=== PATIENT | male | born 1955 | race Two or more races ===

== ENCOUNTER 2024-06-14 23:25 | Inpatient (IN) | payer MEDICAID, OTHER ==
[~2024-06-14] VITALS: Ht 185.4 cm; Wt 88.0 kg
--- NOTE | 2024-06-14 23:46 | ECG ---
[facility] Test Date: 2024-06-14 Test Time: 23:45:09 Pat Name: POLINA MENDOZA Department: ed Room: Gender: M Student Services Director: lorenzo : 1955 Requested By: ASHLEY RICHMOND Order Number: [id number] Reading MD: Measurements Intervals [place] Rate: 88 P: 81 [place]: 184 QRS: 73 QRSD: 77 T: 13 QT: 351 QTc: 425 Interpretive Statements Sinus rhythm Low voltage, precordial leads Please click the below link to view image of tracing.
[2024-06-15 00:12] LABS: Basophils # (auto) 0.1 10 ^3/uL (0-0.2); Basophils % (auto) 0.7 % (0.0-2.0); Eosinophils # (auto) 0.3 10 ^3/uL (0-0.8); Eosinophils % (auto) 3.5 % (0.0-7.0); Hematocrit 46.3 % (41.0-53.0); Hemoglobin 15.9 g/dL (13.5-17.5); Lymphocytes # (auto) 1.9 10 ^3/uL (0.4-5.4); Lymphocytes % (auto) 24.6 % (10.0-50.0); Mean Corpuscular Hemoglobin 33.4 pg (28.0-32.0); Mean Corpuscular Hgb Conc. 34.4 g/dL (32.0-36.0); Mean Corpuscular Volume 97.1 fL (80.0-100.0); Monocytes # (auto) 0.6 10 ^3/uL (0-1.3); Monocytes % (auto) 7.6 % (0.0-12.0); Neutrophils % (auto) 63.6 % (37.0-80.0); Nucleated Red Blood Cells % 0.1 %; Platelet Count (auto) 214 10^3/uL (140-450); Red Blood Cells 4.76 10^6/uL (4.5-5.90); Red Cell Distribution Width 13.1 % (11.8-14.3); White Blood Cell 7.9 10^3/uL (4.4-10.8)
--- NOTE | 2024-06-15 00:14 | ED.PDOC ---
History of Present Illness HPI Comments 69-year-old male with a history of AFib status post ablation brought in by EMS due to syncope. Patient has history of hypertension and AFib, states he is no longer on Eliquis after the ablation, but is supposed to be taking metoprolol. Patient states he has been weaning himself off metoprolol without being advised to do so by his rental representative. Patient states he has been having intermittent short runs of a fib recently, recorded by his watch. Pt states this evening he ate some chocolate, then about an hour later he felt dizzy and had a syncopal episode. He denies any injury. He reportedly had another syncopal episode while being evaluated by EMS. Patient was noted to be bradycardic in the 40's but normotensive with a blood sugar of 139 on scene. On arrival to ED, pt denies any dizziness, chest pain, palpitations, sob or recent illness. Chief Complaint: Syncope Time Seen by MD: 00:13 Reviewed Notes: Nurses Notes, Osteologist Notes Allergies: Coded Allergies: NO KNOWN ALLERGIES (Unverified , 06/14/24) Information Source: Patient, Emergency Med Personnel Mode of Arrival: EMS Severity: Moderate Timing: Hours Duration: Intermittent Prehospital treatment: None Past Medical History PAST MEDICAL HISTORY: AFIB, HTN Surgical History: Appendectomy Surgical History (Other): Cardiac ablation, cataract surgery Family History Family History: Reviewed,noncontributory to illness Social History Smoker: Non-Smoker Alcohol: Denies ETOH Use Drugs: Denies Drug Use Lives In: Home Constitutional: denies: chills, diaphoresis, fatigue, fever, malaise, sweats, weakness, others EENTM: denies: blurred vision, double vision, ear bleeding, ear discharge, ear drainage, ear pain, ear ringing, eye pain, eye redness, hearing loss, mouth pain, mouth swelling, nasal discharge, nose bleeding, nose congestion, nose pain, photophobia, tearing, throat pain, throat swelling, voice changes, others Respiratory: denies: cough, hemoptysis, orthopnea, SOB at rest, shortness of breath, SOB with excertion, stridor, wheezing, others Cardiovascular: denies: chest pain, dizzy spells, diaphoresis, Dyspnea on exertion, edema, irregular heart beat, left arm pain, lightheadedness, palpitations, PND, syncope, others Gastrointestinal: denies: abdomen distended, abdominal pain, blood streaked bowels, constipated, diarrhea, dysphagia, difficulty swallowing, hematemesis, melena, nausea, poor appetite, poor fluid intake, rectal bleeding, rectal pain, vomiting, others Genitourinary: denies: burning, dysuria, flank pain, frequency, hematuria, incontinence, penile discharge, penile sore, pain, testicle pain, testicle swelling, urgency, others Neurological: reports: dizziness, fainting; denies: headache, left sided numbness, left sided weakness, numbness, paresthesia, pre-existing deficit, right sided numbness, right sided weakness, seizure, speech problems, tingling, tremors, weakness, others Musculoskeletal: denies: back pain, gout, joint pain, joint swelling, muscle pain, muscle stiffness, neck pain, others Integumetry: denies: bruises, change in color, change in hair/nails, dryness, laceration, lesions, lumps, rash, wounds, others Allergic/Immunocompromised: denies: Difficulty Healing, Frequent Infections, Hives, Itching, others Hematologic/Lymphatic: denies: anemia, blood clots, easy bleeding, easy bruising, swollen glands, others Endocrine: denies: excessive hunger, excessive sweating, excessive thirst, excessive urination, flushing, intolerance to cold, intolerance to heat, unexplained weight gain, unexplained weight loss, others Psychiatric: denies: anxiety, bipolar disorder, depression, hopeless, panic disorder, schizophrenia, sleepless, suicidal, others Physical Exam General Appearance: No Apparent Distress HEENT: PERRL/EOMI Neck: Full Range of Motion, Normal Inspection Respiratory: Lungs Clear, No Accessory Muscle Use, No Respiratory Distress, Normal Breath Sounds Cardiovascular: No Edema, No JVD, Regular Rate/Rhythm Breast Exam: Deferred Gastrointestinal: Non Tender, Soft Genitalia: Deferred Pelvic: Deferred Rectal: Deferred Extremities: Normal inspection, Normal range of motion, Non-tender, No pedal edema Neurologic: Alert (Oriented x4), No Motor Deficits, Normal Affect, Normal Mood, No Sensory Deficits Cerebellar Function: NOT DONE Reflexes: NOT DONE Skin: Dry, Pallor, Warm Lymphatic: NOT DONE Was a procedure done? Was a procedure done?: No EKG EKG : Comments Sinus rhythm, rate 88, normal intervals, normal axis, normal QRS, no ST/T changes. Differential Dx Considerations may include: Anemia, electrolyte imbalance, vasovagal syncope, arrhythmia, ND, carotid disease, CVA, TIA, among others X-Ray, Labs, Meds, VS Vital Signs Date Time Temp Pulse Resp B/P (MAP) Pulse Ox O2 Delivery O2 Flow Rate FiO2 06/14/24 23:47 67 16 132/78 (96) 100 06/14/24 23:45 88 Lab Test 06/15/24 00:45 06/14/24 23:50 06/14/24 02:41 Range/Units Troponin I High Sensitivity < 3 L < 3 L </=54 ng/L White Blood Count 7.9 4.4-10.8 10^3/uL Red Blood Count 4.76 4.5-5.90 10^6/uL Hemoglobin 15.9 13.5-17.5 g/dL Hematocrit 46.3 41.0-53.0 % Mean Corpuscular Volume 97.1 80.0-100.0 fL Mean Corpuscular Hemoglobin 33.4 H 28.0-32.0 pg Mean Corpuscular Hemoglobin Concent 34.4 32.0-36.0 g/dL Red Cell Distribution Width 13.1 11.8-14.3 % Platelet Count 214 140-450 10^3/uL Mean Platelet Volume 7.7 6.9-10.8 fL Neutrophils (%) (Auto) 63.6 37.0-80.0 % Lymphocytes (%) (Auto) 24.6 10.0-50.0 % Monocytes (%) (Auto) 7.6 0.0-12.0 % Eosinophils (%) (Auto) 3.5 0.0-7.0 % Basophils (%) (Auto) 0.7 0.0-2.0 % Neutrophils # (Auto) 5.0 1.6-8.6 10 ^3/uL Lymphocytes # (Auto) 1.9 0.4-5.4 10 ^3/uL Monocytes # (Auto) 0.6 0-1.3 10 ^3/uL Eosinophils # (Auto) 0.3 0-0.8 10 ^3/uL Basophils # (Auto) 0.1 0-0.2 10 ^3/uL Nucleated Red Blood Cells 0.1 % Prothrombin Time 10.8 9.3-11.8 sec Prothrombin Time INR 1.02 0.9-1.15 Activated Partial Thromboplast Time 24.0 L 24.5-34.5 SEC Sodium Level 139 136-145 mmol/L Potassium Level 3.9 3.5-5.1 mmol/L Chloride Level 106 98-107 mmol/L Carbon Dioxide Level 22 20-31 mmol/L Anion Gap 11 5-15 Blood Urea Nitrogen 12 9-23 mg/dL Creatinine 1.28 0.700-1.30 mg/dL Glomerular Filtration Rate Calc 61 >90 mL/min BUN/Creatinine Ratio 9.4 L 10.0-20.0 Serum Glucose 144 H 74-106 mg/dL Calcium Level 10.1 8.7-10.4 mg/dL Total Bilirubin 0.6 0.2-1.0 mg/dL Aspartate Amino Transferase (AST) 22 13-40 U/L Alanine Aminotransferase (ALT) 24 7-40 U/L Alkaline Phosphatase 93 46-116 U/L B-Type Natriuretic Peptide 10.72 0-100 pg/mL Total Protein 7.9 5.7-8.2 g/dL Albumin 4.6 3.2-4.8 g/dL Urine Color Colorless Yellow Urine Clarity Clear Clear Urine pH 6.5 5.0-9.0 Urine Specific [place] 1.010 1.001-1.035 Urine Protein Negative Negative Urine Ketones Negative Negative Urine Blood Negative Negative /uL Urine Nitrite Negative Negative Urine Bilirubin Negative Negative Urine Urobilinogen Normal Negative mg/dL Urine Leukocyte Esterase Negative Negative /uL Urine RBC 1 0 - 3 /hpf Urine WBC 1 0 - 3 /hpf Urine Squamous Epithelial Cells None seen <5 /hpf Urine Bacteria Few H None Seen /hpf Urine Glucose Normal Normal mg/dL Current Medications Medications (Trade) Dose Ordered Sig/Paulo Route Start Time Stop Time Status Last Admin Sodium Chloride 1,000 ml @ 1,000 mls/hr Q1H ONCE IV 06/15/24 00:15 06/15/24 01:14 DC 06/15/24 00:15 PROCEDURE(s): HWOCT - HEAD WITHOUT CONTRAST REASON: syncope ORDER NUMBER(s): [id number], ACCESSION NUMBER(s): [id number] Examination: HWOCT CLINICAL INDICATION: syncope COMPARISON: None. CONTRAST USED: None. TECHNIQUE: The examination was performed obtaining 5 mm slices without contrast.Technique for this CT scan was done using principles of ALARA (As Low As Reasonably Achievable). Multiplanar reconstructions were obtained. FINDINGS: SUPRATENTORIAL BRAIN: Cerebral Hemispheres: There is no midline shift or mass effect, intra or extra- axial fluid collections or hemorrhage. Periventricular White Matter/Basal Ganglia: No abnormal areas of altered attenuation within the periventricular white matter or basal ganglia. POSTERIOR FOSSA: The brainstem is normal and the visualized cerebellar hemispheres are unremarkable. VENTRICULAR SYSTEM: The ventricular system is normal in size. There is no evidence of hydrocephalus or transependymal flow of cerebrospinal fluid. SKULL BASE AND PARASELLAR REGION: The skull base is normal with no parasellar masses or abnormalities identified. CALVARIUM AND SCALP REGION: No abnormality is seen. PARANASAL SINUSES: No significant inflammatory changes are identified in the paranasal sinuses. IMPRESSION: No intracranial abnormality detected. There is no midline shift or mass effect, intra or extra-axial fluid collections or hemorrhage. Electronically Signed 06/15/2024 02:01 Guillermo Dean EDURE(s): CXRP - CHEST PORTABLE REASON: syncope ORDER NUMBER(s): [id number], ACCESSION NUMBER(s): [id number] CHEST RADIOGRAPH Indication: Chest Pain Technique: Single frontal view of the chest was obtained Comparison: None FINDINGS: Lines and Tubes: None Lungs: Clear Pleura: No effusion. No pneumothorax. Cardiomediastinal contours: Unremarkable Bones: Unremarkable IMPRESSION: 1. Clear lungs. X-Ray, Labs, Meds, VS Comment 69-year-old male with a history of hypertension and AFib status post ablation brought in by EMS after 2 syncopal episodes. EMS noted patient to be bra dycardic in the 40s prior to arrival in the ED. Vitals unremarkable Exam remarkable for pallor Rhythm strip independently interpreted by me: Sinus rhythm, rate 88, no ectopy. EKG sinus rhythm, no ST/T changes Head CT unremarkable Chest x-ray unremarkable CBC, CMP, BNP and serial troponins unremarkable for any abnormality of acute significance Patient treated with the following in the ED: 1 L 0.9 normal saline IV bolus. Patient had 1 episode of nausea and vomiting in the ED, subsequently receiving Zofran 4 mg IV. On re-evaluation patient was resting comfortably with no new neurologic changes. Differential includes syncope due to bradycardia or other arrhythmia. Plan is to admit the patient for Cardiology and Neurology evaluation. Time of 1ST Reevaluation: 00:05 Reevaluation 1ST: Unchanged Time of 2ND Reevaluation: 02:48 Reevaluation 2ND: Unchanged Patient Education/Counseling: Diagnosis, Treatment Family Education/Counseling: No Family Present Departure 1 Departure Time of Disposition: 02:48 Impression: Primary Impression: Syncope Qualified Codes: R55 - Syncope and collapse Disposition: ADMITTED INPATIENT Admit to: Tele Condition: Guarded Critical Care Note Critical Care Time?: No Stability Stability form required: No Heart Score Heart Score: Heart Score Response (Comments) Value History N/A 0 EKG N/A 0 Age N/A 0 Risk Factors N/A 0 Troponin N/A 0 Total 0 I personally scribed for ASHLEY BALL MD ([email or web address]) on 06/15/24 at 00:14. Electronically submitted by Deo Stein ([facility]). ASHLEY BALL MD Jun 15, 2024 00:14
[2024-06-15] MEDS: SODIUM CHLORIDE 0.9% 1,000 ML IV ONE (00:15)
[2024-06-15 00:28] LABS: INR 1.02 (0.9-1.15); Prothrombin Time 10.8 sec (9.3-11.8)
[2024-06-15 00:44] LABS: Alanine Aminotransferase 24 U/L (7-40); Albumin 4.6 g/dL (3.2-4.8); Alkaline Phosphatase 93 U/L (46-116); Anion Gap 11 (5-15); Aspartate Aminotransferase 22 U/L (13-40); BUN/Creatinine Ratio 9.4 (10.0-20.0); Bilirubin, Total 0.6 mg/dL (0.2-1.0); Blood Urea Nitrogen 12 mg/dL (9-23); Calcium 10.1 mg/dL (8.7-10.4); Carbon Dioxide 22 mmol/L (20-31); Chloride 106 mmol/L (98-107); Glucose 144 mg/dL (74-106); Potassium 3.9 mmol/L (3.5-5.1); Sodium 139 mmol/L (136-145); Total Protein 7.9 g/dL (5.7-8.2)
[2024-06-15 01:00] VITALS: PULSE 105; RESP 17; O2SAT 96
[2024-06-15] MEDS: ONDANSETRON HCL 4 MG/2 ML VIAL IV ONE (01:15)
--- NOTE | 2024-06-15 01:18 | DVH ---
CHEST RADIOGRAPH Indication: Chest Pain Technique: Single frontal view of the chest was obtained Comparison: None FINDINGS: Lines and Tubes: None Lungs: Clear Pleura: No effusion. No pneumothorax. Cardiomediastinal contours: Unremarkable Bones: Unremarkable IMPRESSION: 1. Clear lungs.
--- NOTE | 2024-06-15 02:02 | DVH ---
Examination: HWOCT CLINICAL INDICATION: syncope COMPARISON: None. CONTRAST USED: None. TECHNIQUE: The examination was performed obtaining 5 mm slices without contrast.Technique for this CT scan was done using principles of ALARA (As Low As Reasonably Achievable). Multiplanar reconstructio ns were obtained. FINDINGS: SUPRATENTORIAL BRAIN: Cerebral Hemispheres: There is no midline shift or mass effect, intra or extra-axial fluid collection s or hemorrhage. Periventricular White Matter/Basal Ganglia: No abnormal areas of altered attenuation within the periv entricular white matter or basal ganglia. POSTERIOR FOSSA: The brainstem is normal and the visualized cerebellar hemispheres are unremarkable. VENTRICULAR SYSTEM: The ventricular system is normal in size. There is no evidence of hydrocephalus o r transependymal flow of cerebrospinal fluid. SKULL BASE AND PARASELLAR REGION: The skull base is normal with no parasellar masses or abnormalities identified. CALVARIUM AND SCALP REGION: No abnormality is seen. PARANASAL SINUSES: No significant inflammatory changes are identified in the paranasal sinuses. IMPRESSION: No intracranial abnormality detected. There is no midline shift or mass effect, intra or extra-axial fluid collections or hemorrhage. Electronically Signed 06/15/2024 02:01 Guillermo Dean
[2024-06-15] MEDS ORDERED: HYDROcodone-ACET 5/325MG TAB PO PRN (03:00)
[2024-06-15] MEDS ORDERED: ONDANSETRON HCL 4 MG/2 ML VIAL IV PRN (03:00)
[2024-06-15] MEDS ORDERED: DOCUSATE SOD 100 MG CAP PO PRN (03:00)
[2024-06-15] MEDS ORDERED: ACETAMINOPHEN 325 MG TAB PO PRN (03:00)
[2024-06-15] MEDS: SODIUM CHLORIDE 0.9% 1,000 ML IV SCH (03:00)
[2024-06-15 03:25] LABS: Urine Bacteria FEW /hpf (None Seen); Urine Blood Negative /uL (Negative); Urine Clarity Clear (Clear); Urine Color Colorless (Yellow); Urine Protein, UAD Negative (Negative); Urine Squamous Epithelial Cell None Seen /hpf (<5); Urine Urobilinogen Normal (Negative); Urine WBC 1 /hpf (0 - 3); Urine pH 6.5 (5.0-9.0)
[2024-06-15] MEDS ORDERED: hydrALAZINE HCL 20 MG/ML VL IV PRN (04:00)
[2024-06-15] MEDS ORDERED: NITROGLYCERIN 0.4 MG SL TAB SL PRN (05:15)
[2024-06-15] MEDS ORDERED: MORPHINE SULFATE INJ 2 MG/ml SYRG IV PRN (05:15)
--- NOTE | 2024-06-15 05:44 | DVHHP2 ---
History of Present Illness Reason for Visit: Syncope History of Present Illness The patient is a 69-year-old male with past medical history of AFib and hypertension who presented [facility] ED for evaluation of syncopal episode. Patient reports he has been weaning himself off metoprolol without being advised to do so by his health safety coordinator. Patient reports she felt dizzy and had syncopal episode with intermittent short runs of AFib recently, on Eliquis but stopped after ablation. Patient was seen and evaluated in the ED, laboratory data shows WBC 7.9, platelets 214, sodium 139, potassium 3.9, BUN 12 creatinine 1.28, GFR 61, glucose 144, BNP 10.72, troponin < 3, blood pressure 132/78, heart rate 68, temperature 97.9 F, O2 saturation 99% on room air. Head CT showed no acute intracranial abnormality. Please see medication orders section in the computer. On my assessment, patient denied chest pain, no headache, no dizziness, no loss of consciousness, no shortness of breath, no nausea, no vomiting, no fever, no chills. Patient was admitted for further evaluation and medical management. Past Medical History AFIB, HTN Past Surgical History Appendectomy, Cardiac ablation, Cataract surgery Family History Reviewed, noncontributory to the management of this case. Past Social History The patient lives at home, denies smoking, alcohol or illicit drugs abuse. Review of Systems Constitutional: Yes: Weakness; No: Fever, Chills, Sweats, Malaise, Other Eyes: No: Pain, Vision change, Conjunctivae inflammation, Eyelid inflammation, Other, Redness ENT: No: Ear pain, Ear discharge, Nose pain, Nose discharge, Nose congestion, Mouth pain, Mouth swelling, Throat pain, Throat swelling, Other Respiratory: No: Cough, Dry, Shortness of breath, SOB with excertion, Wheezing, Hemoptysis, Pleuritic Pain, Sputum, Wheezing, Other Cardiovascular: No: Chest Pain, Palpitations, Orthopnea, Paroxysmal Noc. Dyspnea, Edema, Lt Headedness, Other Gastrointestinal: No: Nausea, Vomiting, Abdominal Pain, Diarrhea, Constipation, Melena, Hematochezia, Other Genitourinary: No Dysuria, No Frequency, No Incontinence, No Hematuria, No Retention, No Other Musculoskeletal: No: other, neck pain, shoulder pain, arm pain, back pain, hand pain, leg pain, foot pain Skin: No: Rash, Lesions, Jaundice, Bruising, Other Neurological: Other (Dizziness, fainting.); No: Weakness, Numbness, Incoordination, Change in speech, Confusion, Seizures Allergies: Coded Allergies: NO KNOWN ALLERGIES (Unverified , 06/14/24) Medications Current Medications Medications Dose Ordered Sig/Paulo Route Start Time Stop Time Status Last Admin Dose Admin Metoprolol Tartrate 25 mg BID PO 06/15/24 10:00 Sodium Chloride 1,000 ml @ 60 mls/hr [id number] IV 06/15/24 03:00 06/15/24 03:00 60 MLS/HR Acetaminophen/ Hydrocodone Bitart 1 tab Q4HP PRN PO 06/15/24 03:00 Ondansetron HCl 4 mg Q4HP PRN IV 06/15/24 03:00 Docusate Sodium 100 mg BIDPRN PRN PO 06/15/24 03:00 Acetaminophen 650 mg Q6HP PRN PO 06/15/24 03:00 Hydralazine HCl 10 mg Q6HP PRN IV 06/15/24 04:00 Exam Vital Signs Vital Signs Date Time Temp Pulse Resp B/P (MAP) Pulse Ox O2 Delivery O2 Flow Rate FiO2 06/15/24 03:30 102 17 162/72 (102) 98 06/15/24 01:00 Room Air* 0 21 06/15/24 01:00 98.2 98.2 General Appearance: Alert, Oriented X3, Cooperative, No acute distress HEENT: Atraumatic, PERRLA, EOMI, Mucous membr. moist/pink Respiratory: Clear to auscultation, Normal air movement Cardiovascular: Regular rate, Normal S1, Normal S2, No murmurs Abdominal: Normal bowel sounds, Soft, No tenderness, No hepatospenomegaly, No masses Extremities: No clubbing, No cyanosis, No edema, Normal pulses, No tenderness/swelling Skin: No rashes, No breakdown, No significant lesion Neuro: Normal speech, Normal tone, Sensation intact, Cranial nerves 3-12 NL, Reflexes 2+, Other (Generalized weakness) Psych/Mental Status: Mental status NL, Mood NL Labs/Xrays Labs Test 06/15/24 00:45 06/14/24 23:50 06/14/24 02:41 Range/Units Troponin I High Sensitivity < 3 L </=54 ng/L White Blood Count 7.9 4.4-10.8 10^3/uL Red Blood Count 4.76 4.5-5.90 10^6/uL Hemoglobin 15.9 13.5-17.5 g/dL Hematocrit 46.3 41.0-53.0 % Mean Corpuscular Volume 97.1 80.0-100.0 fL Mean Corpuscular Hemoglobin 33.4 H 28.0-32.0 pg Mean Corpuscular Hemoglobin Concent 34.4 32.0-36.0 g/dL Red Cell Distribution Width 13.1 11.8-14.3 % Platelet Count 214 140-450 10^3/uL Mean Platelet Volume 7.7 6.9-10.8 fL Neutrophils (%) (Auto) 63.6 37.0-80.0 % Lymphocytes (%) (Auto) 24.6 10.0-50.0 % Monocytes (%) (Auto) 7.6 0.0-12.0 % Eosinophils (%) (Auto) 3.5 0.0-7.0 % Basophils (%) (Auto) 0.7 0.0-2.0 % Neutrophils # (Auto) 5.0 1.6-8.6 10 ^3/uL Lymphocytes # (Auto) 1.9 0.4-5.4 10 ^3/uL Monocytes # (Auto) 0.6 0-1.3 10 ^3/uL Eosinophils # (Auto) 0.3 0-0.8 10 ^3/uL Basophils # (Auto) 0.1 0-0.2 10 ^3/uL Nucleated Red Blood Cells 0.1 % Prothrombin Time 10.8 9.3-11.8 sec Prothrombin Time INR 1.02 0.9-1.15 Activated Partial Thromboplast Time 24.0 L 24.5-34.5 SEC Sodium Level 139 136-145 mmol/L Potassium Level 3.9 3.5-5.1 mmol/L Chloride Level 106 98-107 mmol/L Carbon Dioxide Level 22 20-31 mmol/L Anion Gap 11 5-15 Blood Urea Nitrogen 12 9-23 mg/dL Creatinine 1.28 0.700-1.30 mg/dL Glomerular Filtration Rate Calc 61 >90 mL/min BUN/Creatinine Ratio 9.4 L 10.0-20.0 Serum Glucose 144 H 74-106 mg/dL Hemoglobin A1c 5.8 H <5.7 % A1C Calcium Level 10.1 8.7-10.4 mg/dL Total Bilirubin 0.6 0.2-1.0 mg/dL Aspartate Amino Transferase (AST) 22 13-40 U/L Alanine Aminotransferase (ALT) 24 7-40 U/L Alkaline Phosphatase 93 46-116 U/L B-Type Natriuretic Peptide 10.72 0-100 pg/mL Total Protein 7.9 5.7-8.2 g/dL Albumin 4.6 3.2-4.8 g/dL Urine Color Colorless Yellow Urine Clarity Clear Clear Urine pH 6.5 5.0-9.0 Urine Specific [place] 1.010 1.001-1.035 Urine Protein Negative Negative Urine Ketones Negative Negative Urine Blood Negative Negative /uL Urine Nitrite Negative Negative Urine Bilirubin Negative Negative Urine Urobilinogen Normal Negative mg/dL Urine Leukocyte Esterase Negative Negative /uL Urine RBC 1 0 - 3 /hpf Urine WBC 1 0 - 3 /hpf Urine Squamous Epithelial Cells None seen <5 /hpf Urine Bacteria Few H None Seen /hpf Urine Glucose Normal Normal mg/dL PATIENT: POLINA MENDOZA ACCT: [id number] UNIT: [id number] : 1955 LOC: ER ROOM / BED: / AGE / SEX: 69 / M ADM STATUS: REG ER SERVICE [id number] ORDERING PHYSICIAN: ASHLEY BALL MD PROCEDURE(s): HWOCT - HEAD WITHOUT CONTRAST REASON: syncope ORDER NUMBER(s): [id number], ACCESSION NUMBER(s): [id number] Examination: HWOCT CLINICAL INDICATION: syncope COMPARISON: None. CONTRAST USED: None. TECHNIQUE: The examination was performed obtaining 5 mm slices without contrast.Technique for this CT scan was done using principles of ALARA (As Low As Reasonably Achievable). Multiplanar reconstructions were obtained. FINDINGS: SUPRATENTORIAL BRAIN: Cerebral Hemispheres: There is no midline shift or mass effect, intra or extra- axial fluid collections or hemorrhage. Periventricular White Matter/Basal Ganglia: No abnormal areas of altered at tenuation within the periventricular white matter or basal ganglia. POSTERIOR FOSSA: The brainstem is normal and the visualized cerebellar hemispheres are unremarkable. VENTRICULAR SYSTEM: The ventricular system is normal in size. There is no evidence of hydrocephalus or transependymal flow of cerebrospinal fluid. SKULL BASE AND PARASELLAR REGION: The skull base is normal with no parasellar masses or abnormalities identified. CALVARIUM AND SCALP REGION: No abnormality is seen. PARANASAL SINUSES: No significant inflammatory changes are identified in the paranasal sinuses. IMPRESSION: No intracranial abnormality detected. There is no midline shift or mass effect, intra or extra-axial fluid collections or hemorrhage. ORDERING PHYSICIAN: ASHLEY BALL MD PROCEDURE(s): CXRP - CHEST PORTABLE REASON: syncope ORDER NUMBER(s): [id number], ACCESSION NUMBER(s): [id number] CHEST RADIOGRAPH Indication: Chest Pain Technique: Single frontal view of the chest was obtained Comparison: None FINDINGS: Lines and Tubes: None Lungs: Clear Pleura: No effusion. No pneumothorax. Cardiomediastinal contours: Unremarkable Bones: Unremarkable IMPRESSION: 1. Clear lungs. Assessment/Plan Assessment/Plan Syncopal episode Generalized weakness Plan 1. Admit to telemetry unit 2. Breathing treatment 3. Pain control management 4. Management of fluids and electrolytes 5. Consultation for hospitalist 6. Diagnostic tests head CT 7. DVT prophylaxis-on SCDs 8. Repeat labs CBC, CMP in a.m. 9. Continue with current medical management 10. Treatment plan discussed with patient and RN. Patient verbalized understanding. Plan discussed with: Other (RN) My Orders Orders - SOHA CAR DNP Procedure Category Date Status Time Metoprolol Tartrate PHA 06/15/24 In Process Tablet (Lopressor Ta 10:00 Allergies BRENT 06/15/24 In Process 02:56 Code Status CODE 06/15/24 Transmitted 02:56 Sodium Chloride 0.9% PHA 06/15/24 In Process 03:00 Oxygen Per Hour RT 06/15/24 Transmitted 02:56 Hydrocodone-Acet PHA 06/15/24 In Process 5/325mg Tab ([place] 03:00 Ondansetron Hcl PHA 06/15/24 In Process (Zofran) 03:00 Docusate Sodium PHA 06/15/24 In Process Capsule (Colace 03:00 Fall Risk Precautions BRENT 06/15/[address] 02:56 Complete Blood Count LAB 06/16/24 Verified 04:00 Comprehensive LAB 06/16/24 Verified Metabolic Panel 04:00 Cardiac DIET 06/15/24 Transmitted Diet-2gna,Lofat,Lochol Breakfast Condition: Serious [facility] 06/15/24 In Process 02:[address] [facility] 06/15/24 In Process (Tylenol Tablet) 03:00 Sequential [facility] 06/15/24 In Process Compression Device Hydralazine Injection [facility] 06/15/24 In Process (Apresoline Inject 04:00 Admit ADMIT 06/15/24 Verified 05:[address] [facility] 06/15/24 Verified Sublingual (Ntrostat 05:[address] [facility] 06/15/24 Verified Injection 05:15 Notify Md Of Changes [facility] 06/15/24 Verified From Base 05:12 Curbstone Setter For [facility] 06/15/24 Verified 24 Hours 05:12 Emergency Dysrhythmia [facility] 06/15/24 Verified Protocol 05:12 Rhythm Strips Once [facility] 06/15/24 Verified Every Shift 05:12 Oxygen By Nasal 06/15/24 Verified Cannula 05:12 Problem List: (1) Syncopal episodes (2) Generalized weakness Date of Service: Jun 15, 2024 Billing Provider: SOHA CAR DNP Common Visit Codes: [id number] INP/OBS CARE (HIGH) SOHA CAR DNP Jun 15, 2024 05:44
[2024-06-15] MEDS: METOPROLOL TARTRATE 25 MG TAB PO SCH ×2 (10:07→22:58)
[2024-06-15 21:42] VITALS: PULSE 85; RESP 17; O2SAT 95
[2024-06-15 22:00] VITALS: BP 139/54; PULSE 81; RESP 18; TEMP 98.5; O2SAT 94
[2024-06-15 22:50] VITALS: BP 139/54; PULSE 81; RESP 18; TEMP 98.5; O2SAT 94
[2024-06-16] VITALS (10 sets, daily range): BP systolic 101–137; BP diastolic 47–72; PULSE 61–77; RESP 16–18; TEMP 98–98.5; O2SAT 94–98
[2024-06-16 07:06] LABS: Basophils # (auto) 0 10 ^3/uL (0-0.2); Basophils % (auto) 0.7 % (0.0-2.0); Eosinophils # (auto) 0.2 10 ^3/uL (0-0.8); Hematocrit 43.4 % (41.0-53.0); Hemoglobin 15.1 g/dL (13.5-17.5); Lymphocytes # (auto) 2.1 10 ^3/uL (0.4-5.4); Lymphocytes % (auto) 31.5 % (10.0-50.0); Mean Corpuscular Hemoglobin 33.6 pg (28.0-32.0); Mean Corpuscular Hgb Conc. 34.8 g/dL (32.0-36.0); Mean Corpuscular Volume 96.6 fL (80.0-100.0); Monocytes # (auto) 0.7 10 ^3/uL (0-1.3); Monocytes % (auto) 10.5 % (0.0-12.0); Neutrophils # (auto) 3.6 10 ^3/uL (1.6-8.6); Neutrophils % (auto) 54.3 % (37.0-80.0); Nucleated Red Blood Cells % 0.1 %; Platelet Count (auto) 200 10^3/uL (140-450); Red Blood Cells 4.49 10^6/uL (4.5-5.90); White Blood Cell 6.6 10^3/uL (4.4-10.8)
[2024-06-16 07:40] LABS: Alanine Aminotransferase 16 U/L (7-40); Alkaline Phosphatase 84 U/L (46-116); Anion Gap 8 (5-15); Calcium 9.4 mg/dL (8.7-10.4); Carbon Dioxide 23 mmol/L (20-31); Potassium 4.6 mmol/L (3.5-5.1); Sodium 139 mmol/L (136-145)
[2024-06-16 07:41] LABS: BUN/Creatinine Ratio 9.2 (10.0-20.0); Blood Urea Nitrogen 12 mg/dL (9-23)
[2024-06-16 07:42] LABS: Aspartate Aminotransferase 23 U/L (13-40)
[2024-06-16 07:43] LABS: Bilirubin, Total 1.1 mg/dL (0.2-1.0); Total Protein 7.1 g/dL (5.7-8.2)
[2024-06-16 07:44] LABS: Chloride 108 mmol/L (98-107); Glucose 107 mg/dL (74-106)
--- NOTE | 2024-06-16 14:02 | DVHPN2 ---
Subjective no more syncope or presyncope c/o hesitancy and frequency of urination does have psa of 7 and bph and awaiting biopsy by his urologist Changes from previous H/P or p: No Changes Eyes: No Pain, No Vision change, No Conjunctivae inflammation, No Eyelid inflammation, No Other, No Redness ENT: No Ear pain, No Ear discharge, No Nose pain, No Nose discharge, No Nose congestion, No Mouth pain, No Mouth swelling, No Throat pain, No Throat swelling, No Other Cardiovascular: No Chest Pain, No Palpitations, No Orthopnea, No Paroxysmal Noc. Dyspnea, No Edema, No Lt Headedness, No Other Respiratory: No Cough, No Dry, No Shortness of breath, No SOB with excertion, No Wheezing, No Hemoptysis, No Pleuritic Pain, No Sputum, No Other Gastrointestinal: No Nausea, No Vomiting, No Abdominal Pain, No Diarrhea, No Constipation, No Melena, No Hematochezia, No Other Genitourinary: No Dysuria, No Frequency, No Incontinence, No Hematuria, No Retention, No Other Musculoskeletal: No other, No neck pain, No shoulder pain, No arm pain, No back pain, No hand pain, No leg pain, No foot pain Skin: No Rash, No Lesions, No Jaundice, No Bruising, No Other Objective Vitals Vital Signs Date Time Temp Pulse Resp B/P (MAP) Pulse Ox O2 Delivery O2 Flow Rate FiO2 06/16/24 13:00 98.2 77 18 133/72 (92) 96 98.2 06/15/24 22:50 Room Air* 0 21 Intake/Output Intake and Output 06/16/24 07:00 Intake Total 1100 ml Balance 1100 ml Intake Oral 800 ml IV Total 300 ml # Voids 1 # Bowel Movements 1 General Appearance: Alert, Oriented X3, Cooperative, No acute distress, mild distress Cardiovascular: Regular rate, Normal S1, Normal S2 Abdomen: Normal bowel sounds, Soft, No tenderness, No hepatospenomegaly Neuro: Normal gait, Normal speech, Strength at 5/5 X4 ext, Normal tone, S ensation intact Psych/Mental Status: Mental status NL Medications Current Medications Medications Dose Ordered Sig/Paulo Route Start Time Stop Time Status Last Admin Dose Admin Docusate Sodium 100 mg BIDPRN PRN PO 06/15/24 03:00 Acetaminophen 650 mg Q6HP PRN PO 06/15/24 03:00 Hydralazine HCl 10 mg Q6HP PRN IV 06/15/24 04:00 Metoprolol Tartrate 25 mg BID PO 06/15/24 22:00 06/16/24 10:00 25 MG Laboratory Results Laboratory Tests 06/16/24 06:16 Chemistry Test 06/16/24 06:16 Albumin 4.0 g/dL (3.2-4.8) Calcium Level 9.4 mg/dL (8.7-10.4) Total Protein 7.1 g/dL (5.7-8.2) LFT Test 06/16/24 06:16 Alanine Aminotransferase (ALT) 16 U/L (7-40) Alkaline Phosphatase 84 U/L (46-116) Aspartate Amino Transferase (AST) 23 U/L (13-40) Total Bilirubin 1.1 mg/dL (0.2-1.0) H HgA1c, TSH Test 06/15/24 14:44 Thyroid Stimulating Hormone (TSH) 1.78 uIU/mL (0.55-4.78) Urinalysis Test 06/14/24 02:41 Urine Color Colorless (Yellow) Urine Clarity Clear (Clear) Urine pH 6.5 (5.0-9.0) Urine Specific [place] 1.010 (1.001-1.035) Urine Protein Negative (Negative) Urine Ketones Negative (Negative) Urine Blood Negative /uL (Negative) Urine Nitrite Negative (Negative) Urine Bilirubin Negative (Negative) Urine Urobilinogen Normal mg/dL (Negative) Urine Leukocyte Esterase Negative /uL (Negative) Urine RBC 1 /hpf (0 - 3) Urine WBC 1 /hpf (0 - 3) Urine Squamous Epithelial Cells None seen /hpf (<5) Urine Bacteria Few /hpf (None Seen) H Urine Glucose Normal mg/dL (Normal) Labs and/or images reviewed: Labs reviewed by me, Image(s) reviewed by me Assessment/Plan Assessment/Plan syncope/presyncope- hr 40 onparamedic arrival with h/o tachybrady syndrome- cardiology consult pending/called cardiology will be here to see patient states had 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 and was in [place]/was dc on cardizem and did not respond and was switched to betablocker/later that year tried to stop his metoprolol and ended with atrail fibrillation/was on amiodarone and eliquis untill ablation in 2021 and after 3 months stopped both and was on betablocker untill 3 months back/ bph/hesitancy- borderline ua- repeat ua/culture/add empiric antibiotic// add flomax- states frequency is chronic complaint worse in past week elevated psa-awaiting prostate biopsy as op Plan discussed with: Patient, Other Date of Service: Jun 16, 2024 Billing Provider: THOMAS TANG MD Common Visit Codes: 62982-IRIOOTH INP/OBS CARE (HIGH) THOMAS TANG MD Jun 16, 2024 14:02
--- NOTE | 2024-06-16 15:37 | DVHSR ---
APPROVED REPORT EXAM: Two-dimensional and M-mode echocardiogram with Doppler and color Doppler. Blood Pressure: 119/62 mmHg INDICATION Syncope RISK FACTORS Height: 6' 1", Weight: 194 DIMENSIONS LVDd4.5 (3.8-5.7cm)LA (2D)4.2 (1.9-4.0cm)Aortic Root3.3 (2.0-3.7cm) LVDs3.1 (2.5-4.0cm)LA (MM) (1.9-4.0cm)Aortic Cusp Exc1.8 (1.5-2.0cm) EF (%) 58.0 (55-70%)Rt. Atrium3.6 (1.9-4.0cm)Asc. Aorta cm IVSd0.8 (0.7-1.1cm)RV (D) (1.8-2.4cm) PWd1.0 (0.7-1.1cm) Mitral Valve MitralMitral Stenosis E wave0.90m/sMV Mean GR.mmHg A wave0.80m/sMV Peak GR.mmHg E/A ratio1.12D MVAcm2 Aortic Valve Aortic ValveAortic Stenosis V11.10m/Delroy Mean GR.3mmHg V21.20m/Delroy Peak GR.6mmHg LVOT Diameter2.3 (1.8-2.4cm)Doppler AVA3.81cm2 Pulmonic Valve V20.70m/s LEFT VENTRICLE The left ventricle is normal size. There is normal left ventricular wall thickness. The left ventricle is normal in structure and function, LVEF 55-60%. Normal wall motion. RIGHT VENTRICLE The right ventricle is grossly normal size. The right ventricular systolic function visually appears normal. ATRIA The left atrial size is normal. The right atrium size is normal. MITRAL VALVE The mitral valve is grossly normal. Mitral regurgitation is trace. PULMONIC VALVE The pulmonic valve is not well visualized. There is no pulmonic valvular regurgitation. TRICUSPID VALVE The tricuspid valve is grossly normal. No tricuspid regurgitation. AORTIC VALVE The aortic valve is trileaflet. There is trace to mild aortic regurgitation. GREAT VESSELS The aortic root is normal size. PERICARDIAL EFFUSION No evidence of pericardial effusion. Conclusion The left ventricle is normal size. There is normal left ventricular wall thickness. The left ventricl e is normal in structure and function, LVEF 55-60%. Normal wall motion. The right ventricle is grossly normal size. The right ventricular systolic function visually appears normal. The left and right atrial size is normal. No significant valvular abnormalities. No evidence of pericardial effusion.
[2024-06-16] MEDS: cefTRIAXone 1GM/50ML D5W 50 ML IV ONE (16:55)
[2024-06-16] MEDS: TAMSULOSIN HYDROCHLORIDE 0.4 MG CAP PO SCH (16:57)
[2024-06-17] VITALS (7 sets, daily range): BP systolic 111–127; BP diastolic 54–64; PULSE 63–75; RESP 17–18; TEMP 97.9–98.3; O2SAT 93–96
--- NOTE | 2024-06-17 09:02 | DVHPN2 ---
Progress Note - Dictate Date Seen: Jun 16, 2024 Medical Necessity Reason Pt with a Central, PICC or Fol: No Subjective PT WITH NEAR SYNCOPE SSS WITH TACHY [place] SYNDROME HX OF AFIB S/P AFIB ABLATION OFF ALL MEDS ( AMIODARONE, BETA ELVA ECT ON ANTICOAGULATION BPH HX OF COVID IN THE PAST ECHO NL EF vital signs Vital Sign Date Time Temp Pulse Resp B/P (MAP) Pulse Ox O2 Delivery O2 Flow Rate FiO2 06/17/24 08:34 98.1 63 18 127/63 (84) 94 98.1 06/16/24 20:00 Room Air* 0 21 Total Intake and Output 06/16/24 06/16/24 06/17/24 15:00 23:00 07:00 Intake Total 1250 ml 650 ml Balance 1250 ml 650 ml medications Current Medications Medications Dose Ordered Sig/Paulo Route Start Time Stop Time Status Last Admin Dose Admin Docusate Sodium 100 mg BIDPRN PRN PO 06/15/24 03:00 Acetaminophen 650 mg Q6HP PRN PO 06/15/24 03:00 Hydralazine HCl 10 mg Q6HP PRN IV 06/15/24 04:00 Metoprolol Tartrate 25 mg BID PO 06/15/24 22:00 06/16/24 10:00 25 MG Tamsulosin HCl 0.4 mg QPM PO 06/16/24 18:00 06/16/24 16:57 0.4 MG Ceftriaxone Sodium 50 ml @ 100 mls/hr DAILY@09 IV 06/17/24 09:00 laboratory and microbiology Laboratory Tests 06/16/24 06:16 Test 06/16/24 06:16 Range/Units Serum Glucose 107 H 74-106 mg/dL Problem List NEAR SYNCOPE SSS WITH TACHY [place] SYNDROME HX OF AFIB S/P AFIB ABLATION OFF ALL MEDS ( AMIODARONE, BETA ELVA ECT ON ANTICOAGULATION BPH HX OF COVID IN THE PAST ECHO NL EF Assessment/Plan CONSIDER PPI Plan discussed with: Patient Critical Care Time(min): 35 JOSÉ ANTONIO PENA MD Jun 17, 2024 09:02
[2024-06-17] MEDS: cefTRIAXone 1GM/50ML D5W 50 ML IV SCH (13:07)
[2024-06-17] MEDS ORDERED: TAMS-35 PO (14:31)
--- NOTE | 2024-06-17 14:35 | DVHDS2 ---
Discharge Summary Date of Admission Jun 15, 2024 at 05:12 Date of Discharge: Jun 17, 2024 Admitting Diagnosis syncope/presyncope- Labs/Diagnostic Data: Laboratory Results Test 06/16/24 06:16 06/15/24 14:44 06/15/24 00:45 06/14/24 23:50 White Blood Count 6.6 10^3/uL (4.4-10.8) Red Blood Count 4.49 10^6/uL (4.5-5.90) Hemoglobin 15.1 g/dL (13.5-17.5) Hematocrit 43.4 % (41.0-53.0) Mean Corpuscular Volume 96.6 fL (80.0-100.0) Mean Corpuscular Hemoglobin 33.6 pg (28.0-32.0) Mean Corpuscular Hemoglobin Concent 34.8 g/dL (32.0-36.0) Red Cell Distribution Width 13.0 % (11.8-14.3) Platelet Count 200 10^3/uL (140-450) Mean Platelet Volume 7.8 fL (6.9-10.8) Neutrophils (%) (Auto) 54.3 % (37.0-80.0) Lymphocytes (%) (Auto) 31.5 % (10.0-50.0) Monocytes (%) (Auto) 10.5 % (0.0-12.0) Eosinophils (%) (Auto) 3.0 % (0.0-7.0) Basophils (%) (Auto) 0.7 % (0.0-2.0) Neutrophils # (Auto) 3.6 10 ^3/uL (1.6-8.6) Lymphocytes # (Auto) 2.1 10 ^3/uL (0.4-5.4) Monocytes # (Auto) 0.7 10 ^3/uL (0-1.3) Eosinophils # (Auto) 0.2 10 ^3/uL (0-0.8) Basophils # (Auto) 0 10 ^3/uL (0-0.2) Nucleated Red Blood Cells 0.1 % Sodium Level 139 mmol/L (136-145) Potassium Level 4.6 mmol/L (3.5-5.1) Chloride Level 108 mmol/L (98-107) Carbon Dioxide Level 23 mmol/L (20-31) Anion Gap 8 (5-15) Blood Urea Nitrogen 12 mg/dL (9-23) Creatinine 1.31 mg/dL (0.700-1.30) Glomerular Filtration Rate Calc 59 mL/min (>90) BUN/Creatinine Ratio 9.2 (10.0-20.0) Serum Glucose 107 mg/dL (74-106) Calcium Level 9.4 mg/dL (8.7-10.4) Total Bilirubin 1.1 mg/dL (0.2-1.0) Aspartate Amino Transferase (AST) 23 U/L (13-40) Alanine Aminotransferase (ALT) 16 U/L (7-40) Alkaline Phosphatase 84 U/L (46-116) Total Protein 7.1 g/dL (5.7-8.2) Albumin 4.0 g/dL (3.2-4.8) Thyroid Stimulating Hormone (TSH) 1.78 uIU/mL (0.55-4.78) Free Thyroxine (T4) Calculated 1.04 ng/dL (0.89-1.76) Troponin I High Sensitivity < 3 ng/L (</=54) Prothrombin Time 10.8 sec (9.3-11.8) Prothrombin Time INR 1.02 (0.9-1.15) Activated Partial Thromboplast Time 24.0 SEC (24.5-34.5) Hemoglobin A1c 5.8 % A1C (<5.7) B-Type Natriuretic Peptide 10.72 pg/mL (0-100) Test 06/14/24 02:41 Urine Color Colorless (Yellow) Urine Clarity Clear (Clear) Urine pH 6.5 (5.0-9.0) Urine Specific [place] 1.010 (1.001-1.035) Urine Protein Negative (Negative) Urine Ketones Negative (Negative) Urine Blood Negative /uL (Negative) Urine Nitrite Negative (Negative) Urine Bilirubin Negative (Negative) Urine Urobilinogen Normal mg/dL (Negative) Urine Leukocyte Esterase Negative /uL (Negative) Urine RBC 1 /hpf (0 - 3) Urine WBC 1 /hpf (0 - 3) Urine Squamous Epithelial Cells None seen /hpf (<5) Urine Bacteria Few /hpf (None Seen) Urine Glucose Normal mg/dL (Normal) Other Laboratory Tests 06/16/24 06:16 Brief Hx & Hospital Course: The patient is a 69-year-old male with past medical history of AFib and hypertension who presented [facility] ED for evaluation of syncopal episode. 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 Patient reports she felt dizzy and had syncopal episode with intermittent short runs of AFib recently, on Eliquis but stopped after ablation. Patient was seen and examined. 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 Patient reports to be feeling "fine". Will be discharged home. Operations or Procedures EXAM: Two-dimensional and M-mode echocardiogram with Doppler and color Doppler. Blood Pressure: 119/62 mmHg INDICATION Syncope RISK FACTORS Height: 6' 1", Weight: 194 DIMENSIONS LVDd 4.5 (3.8-5.7cm) LA (2D) 4.2 (1.9-4.0cm) Aortic Root 3.3 (2.0- 3.7cm) LVDs 3.1 (2.5-4.0cm) LA (MM) (1.9-4.0cm) Aortic Cusp Exc 1.8 (1.5- 2.0cm) EF (%) 58.0 (55-70%) Rt. Atrium 3.6 (1.9-4.0cm) Asc. Aorta cm IVSd 0.8 (0.7-1.1cm) RV (D) (1.8-2.4cm) PWd 1.0 (0.7-1.1cm) Mitral Valve Mitral Mitral Stenosis E wave 0.90m/s MV Mean GR. mmHg A wave 0.80m/s MV Peak GR. mmHg E/A ratio 1.1 2D MVA cm2 Aortic Valve Aortic Valve Aortic Stenosis V1 1.10m/s AO Mean GR. 3mmHg V2 1.20m/s AO Peak GR. 6mmHg LVOT Diameter 2.3 (1.8-2.4cm) Doppler [place] 3.81cm2 Pulmonic Valve V2 0.70m/s LEFT VENTRICLE The left ventricle is normal size. There is normal left ventricular wall thickness. The left ventricle is normal in structure and function, LVEF 55-60%. Normal wall motion. RIGHT VENTRICLE The right ventricle is grossly normal size. The right ventricular systolic function visually appears normal. ATRIA The left atrial size is normal. The right atrium size is normal. MITRAL VALVE The mitral valve is grossly normal. Mitral regurgitation is trace. PULMONIC VALVE The pulmonic valve is not well visualized. There is no pulmonic valvular regurgitation. TRICUSPID VALVE The tricuspid valve is grossly normal. No tricuspid regurgitation. AORTIC VALVE The aortic valve is trileaflet. There is trace to mild aortic regurgitation. GREAT VESSELS The aortic root is normal size. PERICARDIAL EFFUSION No evidence of pericardial effusion. Conclusion The left ventricle is normal size. There is normal left ventricular wall thickness. The left ventricle is normal in structure and function, LVEF 55-60%. Normal wall motion. The right ventricle is grossly normal size. The right ventricular systolic function visually appears normal. The left and right atrial size is normal. No significant valvular abnormalities. No evidence of pericardial effusion. 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 Patient was counseled about treatment plan, medications, possible side effects, patientverbalized understanding. All questions were answered to the best of my ability. This discharge took greater then 30 minutes in planning, reviewing documentation, counseling the patient, and discussing with other team members." ASSESSMENT ASSESSMENT Assessment Date of Service: Jun 17, 2024 Billing Provider: KEIRA RAMIRES MD Common Visit Codes: 39194-INL/OBS DISCH DAY >30min KEIRA RAMIRES MD Jun 17, 2024 14:35
== END 2024-06-17 18:54 | disposition home or self-care (01) | DRG 310 ==
LOC: ER 23:25 → EDBD 23:25 → TELE 06-15 05:12 → TELE-EAST 06-15 21:55
PROVIDERS: ADMIT Nurse Practitioner Family; ATTEND Internal Medicine
DX: I49.5 Sick sinus syndrome (principal); I10 Essential (primary) hypertension; I48.91 Unspecified atrial fibrillation; Z90.49 Acquired absence of other specified parts of digestive tract; Z88.0 Allergy status to penicillin; N40.1 Benign prostatic hyperplasia with lower urinary tract symptoms; R35.0 Frequency of micturition
CPT/HCPCS: 36415; 70450; 71045; 80053; 81001; 83036; 83880; 84439; 84443; 84484; 85025; 85610; 85730; 87086; 93005; 93306; G0378